=== PATIENT | female | born 1970 | race Caucasian/White ===

== ENCOUNTER 2017-10-25 15:30 | Day surgery (SDC) | payer OTHER ==
[~2017-10-25 15:30] MED LIST: MORPHINE 4 MG/ML 1ML VIAL/SYRINGE (J2270) IV; NORCO, ANEXSIA 5/325MG TABLET (HYDROcodone/ACETAMINOPHEN) PO; ONDANSETRON 4MG/2ML VIAL (J2405) IV
[2017-10-25] MEDS: AMPICILLIN SOD/SULBACTAM SOD 3 GM in D5W MINI-BAG PLUS 100 ML IV ×2 (15:57→20:51)
[2017-10-25] MEDS: LR 1,000 ML IV ×3 (15:57→22:34)
[2017-10-25] MEDS ORDERED: GLYCOPYRROLATE INJ 0.2 MG/ML 2 ML VIAL As Ordered (16:33)
[2017-10-25] MEDS ORDERED: ROCURONIUM BROMIDE 50 MG/5 ML VIAL As Ordered (16:33)
[2017-10-25] MEDS ORDERED: LIDOCAINE 2% INJ 100 MG/5 ML SDV (FOR ANES.) As Ordered (16:33)
[2017-10-25] MEDS ORDERED: PROPOFOL 200 MG/20 ML VIAL As Ordered (16:33)
[2017-10-25] MEDS ORDERED: ONDANSETRON 4MG/2ML VIAL (J2405) As Ordered (16:33)
[2017-10-25] MEDS ORDERED: KETOROLAC 60 MG/2 ML VIAL (J1885) As Ordered (16:33)
[2017-10-25] MEDS ORDERED: NEOSTIGMINE 10 MG/10 ML VIAL (J2710) As Ordered (16:33)
[2017-10-25] MEDS ORDERED: dexameTHASONE 4 MG/ML 1ML VIAL (J1100) As Ordered (16:33)
[2017-10-25] MEDS ORDERED: MIDAZOLAM INJ 2 MG/2 ML VIAL (J2250) As Ordered (16:34)
[2017-10-25] MEDS ORDERED: fentaNYL 100 MCG/2 ML INJECTION (J3010) As Ordered (16:34)
[2017-10-25] MEDS ORDERED: metroNIDAZOLE/NACL 500MG(5MG/ML)100 ML BAG (S0030) As Ordered (17:09)
[2017-10-25] MEDS: metroNIDAZOLE 500 MG in APPROPRIATE DILUENT 1 EA IV (17:40)
[2017-10-25] MEDS ORDERED: SUGAMMADEX SODIUM 500 MG/5 ML VIAL (BRIDION) As Ordered (18:07)
[2017-10-25] MEDS: BUPIVACAINE HCL 0.25% 30 ML VIAL As Ordered (18:10)
[2017-10-25] MEDS: LIDOCAINE 1% SDV INJ 30 ML VIAL As Ordered (18:10)
[2017-10-25] MEDS ORDERED: ONDANSETRON 4MG/2ML VIAL (J2405) IV (18:45)
[2017-10-25] MEDS ORDERED: HYDROMORPHONE HCL 0.5 MG/ 0.5 ML SYRINGE (J1170 PER 1) IV (18:45)
[2017-10-25] MEDS ORDERED: fentaNYL 100 MCG/2 ML INJECTION (J3010) IV (18:45)
[2017-10-25] MEDS ORDERED: PERCOCET 5MG/325MG TAB PO (18:45)
[2017-10-26] MEDS: metroNIDAZOLE 500 MG in APPROPRIATE DILUENT 1 EA IV ×2 (00:17→07:58)
[2017-10-26] MEDS: AMPICILLIN SOD/SULBACTAM SOD 3 GM in D5W MINI-BAG PLUS 100 ML IV ×2 (03:00→09:00)
[2017-10-26] MEDS: ACETAMINOPHEN TAB 650MG DOSE (2X325MG) PO ×2 (04:12→07:58)
[2017-10-26] MEDS: LR 1,000 ML IV (04:27)
[2017-10-26 07:07] LABS: BASO % 0.1 % (0.0-1.0); HEMATOCRIT 34.3 % (36.0-47.0); HEMOGLOBIN 11.5 g/dl (12.0-15.5); IMMATURE GRANULOCYTE % 0.3 % (0-3.0); LYMPH # 1.3 10^3/uL (1.5-4.5); LYMPH % 13.5 % (24.0-44.0); MEAN CORPUSCULAR HEMOGLOBIN 29.6 pg (27.0-33.0); MEAN CORPUSCULAR HGB CONC 33.5 g/dl (32.0-36.5); MEAN CORPUSCULAR VOLUME 88.4 fl (80.0-96.0); MONO # 0.6 10^3/uL (0.0-0.8); MONO % 6.1 % (0.0-5.0); NEUTROPHILS # 7.9 10^3/uL (1.8-7.7); PLATELET COUNT, AUTOMATED 284 10^3/uL (150-450); RED BLOOD COUNT 3.88 10^6/uL (4.00-5.40); RED CELL DISTRIBUTION WIDTH 13.2 % (11.5-14.5); WHITE BLOOD COUNT 9.8 10^3/uL (4.0-10.0)
[2017-10-26 07:20] LABS: ANION GAP 7 MEQ/L (8-16); BLOOD UREA NITROGEN 9 MG/DL (7-18); CALCIUM LEVEL 8.3 MG/DL (8.5-10.1); CARBON DIOXIDE LEVEL 25 MEQ/L (21-32); CHLORIDE LEVEL 111 MEQ/L (98-107); CREATININE FOR GFR 0.65 MG/DL (0.55-1.30); GLOMERULAR FILTRATION RATE > 60.0 (>58); GLUCOSE, FASTING 107 MG/DL (70-100); POTASSIUM SERUM 3.8 MEQ/L (3.5-5.1); SODIUM LEVEL 143 MEQ/L (136-145)
== END 2017-10-26 11:56 | disposition home or self-care (01) ==
LOC: M SDC 10-26 11:56 → M PED 15:38
DX: K35.89 Other acute appendicitis (principal)
CPT/HCPCS: 44970

== ENCOUNTER → 2019-01-02 | Outpatient (CLI) | payer OTHER ==
[~2019-01-02] MED LIST changes: +LOW-1TAB2; -MORPHINE 4 MG/ML 1ML VIAL/SYRINGE (J2270) IV; -NORCO, ANEXSIA 5/325MG TABLET (HYDROcodone/ACETAMINOPHEN) PO; +OMEP20CA4; -ONDANSETRON 4MG/2ML VIAL (J2405) IV
--- NOTE | 2019-01-02 19:42 | REPVR ---
EXAM: MR Lumbar Spine Without Contrast. EXAM DATE/TIME: 01/02/2019 5:22 PM CLINICAL HISTORY: 48 years old, female; Low back pain; Additional info: Lumbar pain TECHNIQUE: Imaging protocol: Multiplanar magnetic resonance images of the lumbar spine without intravenous contrast. COMPARISON: No relevant prior studies available. FINDINGS: Vertebrae: Mild levoconvex scoliosis. No acute fracture seen. T1 hyperintense lesions within the bone marrow consistent with focal fat deposition or vertebral body hemangiomas. Spinal cord: The conus medullaris ends normally. There is disc desiccation with mild posterior disc height loss at L3-4. Mild to moderate prevertebral spondylosis at L4-5. Fatty degenerative marrow signal change of the endplates at L4-5. L1-L2: No significant disc disease. No significant spinal stenosis. L2-L3: Mild disc bulge as well as mild to moderate facet arthropathy and ligamentum flavum buckling. No stenoses. L3-L4: Mild diffuse disc bulge as well as mild to moderate facet arthropathy and ligamentum flavum buckling with left facet joint effusion. There is a left lateral canal disc protrusion with high-intensity zone measuring 5.5 mm in AP dimension abutting and posteriorly displacing the left L4 nerve root. Central spinal canal stenosis is mild. Mild right neural foraminal stenosis. L4-L5: Mild disc osteophyte complex as well as moderate facet arthropathy and ligamentum flavum buckling of the left facet joint effusion. No significant central spinal canal stenosis. Lateral recess stenoses are mild. Mild bilateral neural foraminal stenoses, the exiting right L4 nerve root abuts foraminal to far lateral disc material. L5-S1: Mild disc osteophyte complex as well as mild to moderate facet arthropathy causing mild bilateral neural foraminal stenoses. The central spinal canal is patent. No evidence of S1 nerve root impingement. Soft tissues: Unremarkable. IMPRESSION: 1. A left lateral canal disc protrusion at L3-4 may be cause of left L4 distribution radiculopathy. The central spinal canal stenosis is mild. 2. Mild stenoses elsewhere, as above. Electronically signed by: Mckenzie Pacheco On 01/02/2019 19:41:56 PM
== END ==
LOC: M RAD 16:40
PROVIDERS: ATTEND Registered Nurse Community Health
DX: M51.26 Other intervertebral disc displacement, lumbar region (principal); M25.78 Osteophyte, vertebrae; M51.36 Other intervertebral disc degeneration, lumbar region